=== PATIENT | male | born 1980 | race Native Hawaiian/Other Pacific Islander ===

== ENCOUNTER 2018-03-30 13:01 | Emergency (ER) | payer SELFPAY ==
[~2018-03-30] VITALS: Ht 165.1 cm; Wt 81.8 kg
[~2018-03-30 13:01] MED LIST: IBU800 M1 PO
[2018-03-30 13:03] VITALS: BP 134/93; TEMP 99
[2018-03-30 14:32] VITALS: PULSE 91
== END 2018-03-30 14:32 | disposition home or self-care (01) ==
LOC: COL.ER 13:01
DX: S93.401A Sprain of unspecified ligament of right ankle, initial encounter (principal); S93.601A Unspecified sprain of right foot, initial encounter; X50.0XXA Overexertion from strenuous movement or load, initial encounter; F17.210 Nicotine dependence, cigarettes, uncomplicated

== ENCOUNTER 2019-01-24 17:35 | Emergency (ER) | payer SELFPAY ==
[~2019-01-24] VITALS: Ht 167.6 cm; Wt 97.7 kg
[2019-01-24 17:41] VITALS: BP 143/86; TEMP 98.8
[2019-01-24] MEDS ORDERED: AMOXICILLIN 25250 MG PO (17:57)
[2019-01-24] MEDS ORDERED: CEPHALEXIN500 M1 PO (18:43)
[2019-01-24] MEDS ORDERED: BACTRIM DS 8001 TAB PO (18:43)
[2019-01-24 19:08] VITALS: PULSE 81
== END 2019-01-24 19:08 | disposition home or self-care (01) ==
LOC: COL.ER 17:35
DX: L03.115 Cellulitis of right lower limb (principal); F17.210 Nicotine dependence, cigarettes, uncomplicated

== ENCOUNTER 2019-08-15 19:14 | Emergency (ER) | payer SELFPAY ==
[~2019-08-15] VITALS: Ht 167.6 cm; Wt 93.2 kg
[~2019-08-15 19:14] MED LIST changes: +AMOXICILLIN 25250 MG PO; +BACTRIM DS 8001 TAB PO; +CEPHALEXIN500 M1 PO
[2019-08-15 19:19] VITALS: BP 152/84; TEMP 98.4
[2019-08-15 21:24] VITALS: PULSE 71
== END 2019-08-15 21:25 | disposition home or self-care (01) ==
LOC: COL.ER 19:14
DX: S61.212A Laceration without foreign body of right middle finger without damage to nail, initial encounter (principal); F17.210 Nicotine dependence, cigarettes, uncomplicated; W26.8XXA Contact with other sharp object(s), not elsewhere classified, initial encounter; Y92.59 Other trade areas as the place of occurrence of the external cause

== ENCOUNTER 2019-08-22 12:17 | Emergency (ER) | payer SELFPAY ==
[2019-08-22 12:21] VITALS: BP 140/93; PULSE 84; TEMP 98.6
== END 2019-08-22 12:26 | disposition home or self-care (01) ==
LOC: COL.ER 12:17
DX: Z48.02 Encounter for removal of sutures (principal)